=== PATIENT | female | born 1995 | race American Indian/Alaskan Native ===

== ENCOUNTER 2017-05-30 06:29 | Emergency (ER) | payer SELFPAY ==
[2017-05-30 07:01] VITALS: BP 116/65
[2017-05-30] MEDS ORDERED: ASPIRIN PO ONE (07:01)
[2017-05-30 07:42] LABS: Basophils % (Auto) 1.1 % (0.0-1.8); Eosinophils # (Auto) 0.2 K/mm3 (0.0-0.4); Eosinophils % (Auto) 4.8 % (0.0-4.3); Lymphocytes # (Auto) 1.2 K/mm3 (1.2-5.4); Lymphocytes % (Auto) 24.6 % (13.4-35.0); Mean Corpuscular HGB Conc 30 % (30-34); Mean Corpuscular Volume 77 fl (79-97); Monocytes # (Auto) 0.6 K/mm3 (0.0-0.8); Monocytes % (Auto) 11.8 % (0.0-7.3); Platelet Count 266 K/mm3 (140-440); Red Blood Count 4.35 M/mm3 (3.65-5.03)
[2017-05-30 07:48] LABS: BUN/Creatinine Ratio 23; Blood Urea Nitrogen 14 mg/dL (7-17); Calcium 8.7 mg/dL (8.4-10.2); Hemolysis Index 1
[2017-05-30 07:50] LABS: Hematocrit 33.2 % (30.3-42.9); Mean Corpuscular Hemoglobin 23 pg (28-32)
[2017-05-30] MEDS ORDERED: DUONEB *Not for PRN Use IH ONE (08:46)
--- NOTE | 2017-05-30 08:50 | Emergency Department Report ---
ED Chest Pain HPI - General Chief Complaint: Upper Respiratory Infection Stated Complaint: CHEST PAIN,SOB,CONGESTION Time Seen by Provider: 05/30/17 08:42 Source: patient Mode of arrival: Ambulatory Limitations: Language Barrier - History of Present Illness Initial Comments: This is a 21-year-old female nontoxic, well nourished in appearance, no acute signs of distress presents to the ED with c/o of chest pain, shortness of breath , wheezing and productive cough with rhinorrhea and nasal congestion 1 week. Patient states that she has chest pain during coughing episode. She denies any radiation of chest pain. Patient denies any fever, chills, nausea, vomiting, headache, stiff neck numbness or tingling. Patient denies any recent travels, long car rides, recent hospital stays. Patient denies any hemoptysis. Denies any calf pain or calf tenderness. She denies taking oral contraceptives. Patient denies any drug allergies or significant past medical history. MD Complaint: chest pain -: week(s) (1) Onset: other (coughing) Pain Location: substernal Pain Radiation: none Severity: mild Severity scale (0 -10): 3 Quality: aching Consistency: intermittent Improves With: nothing Worsens With: nothing re: denies: nausea, vomting, diaphoresis, dyspnea, sense of impending doom Other Symptoms: cough. denies: fever, syncope, rash, acid taste in mouth, leg swelling, palpitations, burping Treatments Prior to Arrival: none Aspirin use within the Past 7 Days: (0) No - Related Data On Oral Contraceptives: No Previous Rx's Medication Instructions Recorded Last Taken Type ALBUTEROL Inhaler [ProAir HFA 2 puff IH QID PRN #1 inhalation 05/30/17 Unknown Rx Inhaler] Azithromycin [Zithromax Z-KHOI] 250 mg PO DAILY #6 tablet 05/30/17 Unknown Rx Prednisone [predniSONE 10 mg 10 mg PO .TAPER #1 tab.ds.pk 05/30/17 Unknown Rx (6-Day Pack, 21 Tabs)] Allergies Allergy/AdvReac Type Severity Reaction Status Date / Time No Known Allergies Allergy Unverified 05/30/17 06:57 Heart Score - HEART Score History: Slightly suspicious EKG: Normal Age: < 45 Risk factors: No known risk factors Troponin: < normal limit HEART Score: 0 ED Review of Systems ROS: Stated complaint: CHEST PAIN,SOB,CONGESTION Other details as noted in HPI Constitutional: denies: chills, fever Eyes: denies: eye pain, eye discharge, vision change ENT: denies: ear pain, throat pain Respiratory: cough, shortness of breath, wheezing Cardiovascular: chest pain. denies: palpitations Endocrine: no symptoms reported Gastrointestinal: denies: abdominal pain, nausea, diarrhea Genitourinary: denies: urgency, dysuria, discharge Musculoskeletal: denies: back pain, joint swelling, arthralgia Skin: denies: rash, lesions Neurological: denies: headache, weakness, paresthesias Psychiatric: denies: anxiety, depression Hematological/Lymphatic: denies: easy bleeding, easy bruising ED Past Medical Hx - Past Medical History Previous Medical History?: No - Surgical History Past Surgical History?: No - Social History Smoking Status: Never Smoker Substance Use Type: None - Medications Home Medications: Home Medications Medication Instructions Recorded Confirmed Last Taken Type ALBUTEROL Inhaler [ProAir HFA 2 puff IH QID PRN #1 inhalation 05/30/17 Unknown Rx Inhaler] Azithromycin [Zithromax Z-KHOI] 250 mg PO DAILY #6 tablet 05/30/17 Unknown Rx Prednisone [predniSONE 10 mg 10 mg PO .TAPER #1 tab.ds.pk 05/30/17 Unknown Rx (6-Day Pack, 21 Tabs)] ED Physical Exam - General Limitations: Language Barrier General appearance: alert, in no apparent distress - Head Head exam: Present: atraumatic, normocephalic - Eye Eye exam: Present: normal appearance Pupils: Present: normal accommodation - ENT ENT exam: Present: normal exam, mucous membranes moist - Neck Neck exam: Present: normal inspection, full ROM - Respiratory Respiratory exam: Present: normal lung sounds bilaterally, wheezes (bilateral upper and lower lobes), chest wall tenderness (substernal region). Absent: respiratory distress, rales, rhonchi, stridor, accessory muscle use, decreased breath sounds, prolonged expiratory - Cardiovascular Cardiovascular Exam: Present: regular rate, normal rhythm, normal heart sounds. Absent: irregular rhythm, systolic murmur, diastolic murmur, rubs, gallop - GI/Abdominal GI/Abdominal exam: Present: soft, normal bowel sounds. Absent: distended, tenderness - Rectal Rectal exam: Present: deferred - Extremities Exam Extremities exam: Present: normal inspection, full ROM, normal capillary refill. Absent: tenderness, pedal edema, joint swelling, calf tenderness - Back Exam Back exam: Present: normal inspection, full ROM - Neurological Exam Neurological exam: Present: alert, oriented X3, normal gait - Psychiatric Psychiatric exam: Present: normal affect, normal mood - Skin Skin exam: Present: warm, dry, intact, normal color. Absent: rash ED Course Vital Signs 05/30/17 06:57 Temperature 98.2 F Pulse Rate 109 H Respiratory 18 Rate Blood Pressure 116/65 O2 Sat by Pulse 100 Oximetry - Reevaluation(s) Reevaluation #1: 05/30/17 08:51 Patient is speaking in full sentences with no signs of distress noted. SUDHEER score - Sudheer Score Age > 65: (0) No Aspirin use within the Past 7 Days: (0) No 3 or more CAD Risk Factors: (0) No 2 or more Angina events in past 24 hrs: (0) No Known CAD with more than 50% Stenosis: (0) No Elevated Cardiac Markers: (0) No ST Deviation Greater than 0.5mm: (0) No SUDHEER Score: 0 ED Medical Decision Making - Lab Data Result diagrams: 05/30/17 07:13 05/30/17 07:13 - Medical Decision Making this is a 21-year-old female that presents with costochondritis, asthma exacerbation, upper extremity infection times one week. Patient is stable and was examined by me. Chest x-ray obtained and dictated by the radiologist within normal limits. Patient is notified of the x-ray report with no question about her by the patient. Labs are within normal limits. Negative d-dimer and troponin. EKG normal sinus rhythm with no ST abnormalities. Patient received DuoNeb and Solu-Medrol in thesymptoms are improving subsided. Posttreatment there is no wheezing upon auscultation. Patient is discharged with Z-Khoi, prednisone, albuterol. Patient was instructed to Follow-up with a primary care doctor in 3-5 days or if symptoms worsen and continue return to emergency room as soon as possible. At time of discharge, the patient does not seem toxic or ill in appearance. No acute signs of distress noted. Patient agrees to discharge treatment plan of care. No further questions noted by the patient. Critical care attestation.: If time is entered above; I have spent that time in minutes in the direct care of this critically ill patient, excluding procedure time. ED Disposition Clinical Impression: Costochondritis Asthma exacerbation Qualifiers: Asthma severity: mild Asthma persistence: intermittent Qualified Code(s): J45.21 - Mild intermittent asthma with (acute) exacerbation Upper respiratory infection Qualifiers: URI type: unspecified URI Qualified Code(s): J06.9 - Acute upper respiratory infection, unspecified Disposition: TO HOME OR SELFCARE Is pt being admited?: No Does the pt Need Aspirin: No Condition: Stable Instructions: Asthma (ED), Upper Respiratory Infection (ED), Costochondritis ( ED) Additional Instructions: Follow-up with a primary care doctor in 3-5 days or if symptoms worsen and continue return to emergency room as soon as possible. Prescriptions: ALBUTEROL Inhaler [ProAir HFA Inhaler] 2 puff IH QID PRN #1 inhalation PRN Reason: Shortness Of Breath Azithromycin [Zithromax Z-KHOI] 250 mg PO DAILY #6 tablet Prednisone [predniSONE 10 mg (6-Day Pack, 21 Tabs)] 10 mg PO .TAPER #1 tab.ds.pk Referrals: PRIMARY CARE, [Primary Care Provider] - 3-5 Days DANO WALDEN MD [Staff Physician] - 3-5 Days [facility] [Outside] - 3-5 Days [facility] [Outside] - 3-5 Days Forms: Work/School Release Form(ED)
--- NOTE | 2017-05-30 09:51 | XRay Report ---
ROUTINE CHEST, TWO VIEWS: HISTORY: Cough. The trachea, heart, mediastinal contour, lung garcia and bony thorax are unremarkable. IMPRESSION: Unremarkable chest x-ray.
== END 2017-05-30 10:08 | disposition home or self-care (01) ==
LOC: ED 06:29
DX: J45.21 Mild intermittent asthma with (acute) exacerbation (principal); M94.0 Chondrocostal junction syndrome [Tietze]; J06.9 Acute upper respiratory infection, unspecified
CPT/HCPCS: 36415; 71046; 80048; 84484; 84703; 85025; 85379; 93005; 93010; 94640; 96372; 99284; J2930